=== PATIENT | male | born 1970 | race Caucasian/White ===

== ENCOUNTER 2023-10-28 02:58 | Outpatient (CLI) | payer BC, SELFPAY ==
[2023-10-28 12:14] LABS: HCT 47.2 % (40.0-50.0); HGB 17.1 g/dL (13.5-17.5); MCH 29.9 pg (27.0-33.0); MCHC 36.2 % (32.0-36.0); MCV 83 fL (80-95); MPV 10.6 fL (8.0-11.0); Platelet Count 202 10^3/uL (130-400); RBC 5.72 10^6/uL (4.36-5.78); RDW 11.9 % (11.8-14.1); RDW-SD 35.4 fL; WBC 4.92 10^3/uL (4.4-10.8)
[2023-10-28 12:30] LABS: ALT 31 U/L (16-63); AST 12 U/L (15-37); Albumin 3.8 g/dL (3.4-5.0); Alkaline Phosphatase 40 U/L (46-116); Anion Gap 8.2 mmol/L (3-11); BUN 17 mg/dL (7-18); Bilirubin, Total 0.8 mg/dL (0.2-1.0); CO2 26.8 mmol/L (21.0-32.0); Calcium 9.5 mg/dL (8.5-10.1); Calculated LDL 116 mg/dL (<100); Chloride 104 mmol/L (98-107); Cholesterol 202 mg/dL (<200); Estimated GFR 89.44 (mL/min/1.73m2); Glucose 317 mg/dL (74-106); HDL Cholesterol 44 mg/dL (40-60); Sodium 139 mmol/L (136-145); Total Protein 7.6 g/dL (6.4-8.2); Triglyceride 213 mg/dL (<150)
[2023-10-28 17:19] LABS: PSA, Screening 0.3 ng/mL (<=3.5)
== END 2023-10-28 02:59 | disposition home or self-care (01) ==
LOC: LOS 02:58
PROVIDERS: PCP Nurse Practitioner Family; Visit Provider Nurse Practitioner Family
DX: G57.83 Other specified mononeuropathies of bilateral lower limbs (principal); E11.9 Type 2 diabetes mellitus without complications; R03.0 Elevated blood-pressure reading, without diagnosis of hypertension; Z13.220 Encounter for screening for lipoid disorders; Z12.5 Encounter for screening for malignant neoplasm of prostate
CPT/HCPCS: 36415; 80053; 80061; 84153; 85027

== ENCOUNTER → 2024-03-21 01:57 | Outpatient (CLI) | payer BC, SELFPAY ==
--- NOTE | 2024-03-21 07:33 | DI.RAD_ITS ---
Exam(s) XR HIP RT COMPLETE AP PELVIS EXAM: XR HIP RT COMPLETE AP PELVIS CLINICAL HISTORY: Increased right hip pain,m25.551. TECHNIQUE: 2D digital imaging was performed of the right hip. Two images were obtained. AP pelvis a nd lateral right hip views were obtained. COMPARISON: No exams were available for comparison FINDINGS: BONES: No acute fracture is present. No bony destructive lesion is seen. JOINTS: No dislocation present. There is mild narrowing of the superior joint spaces of the hips bila terally. The sacroiliac joints are unremarkable as is the symphysis pubis. SOFT TISSUE: Normal. IMPRESSION: Mild joint space narrowing of the hips bilaterally. DATA REPOSITORY: RADIATION DOSE DELIVERED:
== END ==
PROVIDERS: PCP Nurse Practitioner Family; Visit Provider Nurse Practitioner Family
DX: M16.0 Bilateral primary osteoarthritis of hip (principal)
CPT/HCPCS: 73502

== ENCOUNTER 2024-06-14 18:16 | Outpatient (REF) | payer BC, SELFPAY ==
[2024-06-14 15:28] LABS: COMMENT (LAB VIEW ONLY) 34.07 mg/dL
[2024-06-14 15:29] LABS: Microalb ug/mg Crea 147.6 ug/mg Cr
== END 2024-06-14 18:17 | disposition home or self-care (01) ==
LOC: LBN 18:16
PROVIDERS: PCP Nurse Practitioner Family; Visit Provider Nurse Practitioner Family
DX: E11.9 Type 2 diabetes mellitus without complications (principal); E11.42 Type 2 diabetes mellitus with diabetic polyneuropathy
CPT/HCPCS: 82043; 82570

== ENCOUNTER 2024-06-27 02:22 | Outpatient (CLI) | payer BC, SELFPAY ==
--- NOTE | 2024-07-04 10:57 | W.DIABETESNO ---
Date of service: 06/27/24 Time of Service: 13:00 Diabetes Note Reason for Visit: Diabetes education/mgt NOTE: Nam comes in after an A1C of 12.2% om 06/14/24 raised concern about Nam's glycemic control. Nam states his A1C was high last October and started to exercise and kick it's ass with it dropping into the '. Then he suffered STEMI and had 4 stents placed and was unable to exercise. He now states he exercises 5 days per week and does cardio (bot not running) and intends to kick it's ass again. I told him I was unsure of how intense or frequent he should be exercising and suggested he get involved with cardiac rehab or check back with provider about limitations. I also informed him that exercise is healthy in many ways, but will not erase bad dietary habits. Nam came into the appointment making it clear he does not, and will not eat fruits and vegetables. He was proactive enough to bring in a diet journal of his food choices which confirmed he does not eat produce at all. Although I did encourage him to warm up to trying the many different options out there for produce, I met him where he is at right now and spent more time reviewing carb sources and how much a serving size is and reviewed his menu planning goal to top off at 12 servings per day - less is ok but more should be avoided. We discussed the benefit of Slow carbs that are high in fiber and protein like legumes, and intact/whole grains. His diet assessed as low in fiber, high in saturated fat due to high intake of animal proteins. He stopped taking metformin as rx'd due to uncontrollable diarrhea episodes while in bed twice and refused to deal with it. Now he takes 500mg metformin in the morning and Berberine herbal supplement at night. Also takes Magnesium 3 times per week and some ginseng. Davin took some of the materials we reviewed for education and meal planning and also took my card to contact if desiring any follow up appts or needs answers to any questions regarding his goal to get his glucose better controlled. Time Spent in Nutritional Counseling and Treatment: 45 minutes
== END 2024-06-27 02:23 | disposition home or self-care (01) ==
LOC: DS 02:22
PROVIDERS: PCP Nurse Practitioner Family; Visit Provider Dietitian, Registered
DX: E11.42 Type 2 diabetes mellitus with diabetic polyneuropathy (principal)
CPT/HCPCS: 00123; 97802